=== PATIENT | male | born 1965 | race Caucasian/White ===

== ENCOUNTER 2018-11-14 05:14 | Observation (INO) | payer OTHER ==
[2018-11-14] MEDS ORDERED: ASPIRIN 81 MG CHEWABLE TABLET ONE (05:52)
[2018-11-14] MEDS ORDERED: NITROGLYCERIN 0.4 MG/TAB SL ONE (05:52)
[2018-11-14 06:04] LABS: Absolute Lymphocytes (CBC) 1.8 K/uL (0.7-4.9); Absolute Monocytes 0.7 K/uL (0.1-1.3); Absolute Neutrophil 9.9 K/uL (1.8-8.0); Basophils % 0.3 % (0-1.3); Eosinophils % 1.2 % (0-4.4); Hematocrit 48.2 % (39.6-49.0); Lymphocytes % 14.4 % (15.3-44.8); Monocytes % 5.8 % (3.3-12.3); RBC Red Blood Cell Count 5.19 M/uL (4.33-5.43)
[2018-11-14 06:10] LABS: ALT/SGPT 57 U/L (12-78); AST/SGOT 22 U/L (15-37); Albumin 4.3 g/dL (3.4-5.0); Alkaline Phosphatase 89 U/L (45-117); BUN Blood Urea Nitrogen 19 mg/dL (7-18); Bicarbonate 28 mmol/L (21-32); Bilirubin Direct 0.2 mg/dL (0-0.2); Bilirubin Total 1.2 mg/dL (0.2-1.0); Glucose Level 95 mg/dL (74-106); NT PRO-BNP 23 pg/mL (<125); Potassium 4.3 mmol/L (3.5-5.1); Protein, Total 7.3 g/dL (6.4-8.2); Sodium Level 141 mmol/L (136-145); Troponin (Emerg Dept Use Only) < 0.02 ng/mL (0.0-0.045)
--- NOTE | 2018-11-14 06:25 | EDPHYS ---
Physician Documentation [facility] Name: Abrahan Jacobs Age: 53 yrs Sex: Male : 1965 Arrival Date: 11/14/2018 Time: 05:15 Bed 5 Private MD: ED Physician Lalo Rivera HPI: 11/14 05:33 This 53 yrs old Male presents to ER via Unassigned with complaints of Chest rn Pain, Possible Cardiac Related. 05:33 The patient or guardian reports chest pain that is located primarily in the substernal rn area. Onset: at 03:00. The pain radiates to Associated signs and symptoms: Pertinent positives: None. Pertinent negatives: abdominal pain, cough, diaphoresis, dizziness, headache, lower extremity pain, lower extremity swelling, lightheadedness, nausea, near syncope, palpitations, recent travel, shortness of breath, syncope, vomiting. The chest pain is described as a heaviness. Duration: The patient or guardian reports a single episode, that is still ongoing. Severity of pain: At its worst the pain was moderate in the emergency department the pain has improved. The patient has experienced a previous episode, The patient has experienced similar episodes in the past. Reports had triple bypass 7 years ago, has not had repeat stress or anything other than bloodwork since then, has been pain free since then. Woke up around 0300 wih chest heaviness/pressure, radiates to riht shoulder and back, was 7/10, now 2/10 without taking anything. Denies fever/cough/sob/abd pain.. Historical: - Allergies: 05:43 No Known Allergies; lp1 - Home Meds: 05:43 simvastatin 80 mg Oral tab daily [Active]; aspirin 325 mg Oral tab 1 tab once daily lp1 [Active]; Vascepa 1 gram oral cap 2 caps 2 times per day [Active]; bisoprolol fumarate 5 mg oral tab 1 tab once daily [Active]; levothyroxine 150 mcg tab 1 tab once daily [Active]; - PMHx: 05:43 Angina; Hyperlipidemia; Hypothyroidism; Hypertension; lp1 - PSHx: 05:43 CABG; lp1 - Immunization history:: Adult Immunizations up to date. - Social history:: Smoking status: Patient/guardian denies using tobacco. - Family history:: pertinent for heart disease. - Ebola Screening: : No symptoms or risks identified at this time. - Hospitalizations: : No recent hospitalization is reported. ROS: 05:34 Constitutional: Negative for fever, chills, and weight loss, Eyes: Negative for injury, rn pain, redness, and discharge, Neck: Negative for injury, pain, and swelling, Cardiovascular: Negative for palpitations, and edema, Respiratory: Negative for shortness of breath, cough, wheezing, and pleuritic chest pain, Abdomen/GI: Negative for abdominal pain, nausea, vomiting, diarrhea, and constipation, MS/Extremity: Negative for injury and deformity, Skin: Negative for injury, rash, and discoloration, Neuro: Negative for headache, weakness, numbness, tingling, and seizure. Exam: 05:34 Constitutional: This is a well developed, well nourished patient who is awake, alert, rn and in no acute distress. Head/Face: Normocephalic, atraumatic. Eyes: Pupils equal round and reactive to light, extra-ocular motions intact. Lids and lashes normal. Conjunctiva and sclera are non-icteric and not injected. Cornea within normal limits. Periorbital areas with no swelling, redness, or edema. ENT: MMM Cardiovascular: Regular rate and rhythm. No pulse deficits. Respiratory: Lungs have equal breath sounds bilaterally, clear to auscultation. Speaking full sentences Abdomen/GI: soft, non-tender Skin: Warm, dry MS/ Extremity: Pulses equal, no cyanosis. Neurovascular intact. Full, normal range of motion. Equal circumference. Neuro: Awake and alert, GCS 15. Motor strength 5/5 in all extremities. Sensory grossly intact. Cerebellar exam normal. Vital Signs: 05:41 BP 144 / 92; Pulse 57; Resp 16; Temp 98.4(O); Pulse Ox 98% on R/A; Weight 106.59 kg; lp1 Height 5 ft. 11 in. (180.34 cm); Pain 2/10; 06:32 BP 116 / 62 LA; tl2 06:32 BP 117 / 74 RA; tl2 06:32 BP 117 / 74; Pulse 58; Resp 17; Pulse Ox 97% on R/A; tl2 08:00 BP 114 / 68; Pulse 56; Resp 15; Pulse Ox 100% on R/A; Pain 2/10; hb 09:30 BP 108 / 72; Pulse 57; Resp 16; Pulse Ox 100% ; Pain 0/10; hb 10:30 BP 118 / 72; Pulse 58; Resp 15; Pulse Ox 100% on R/A; Pain 0/10; hb 12:05 BP 101 / 75; Pulse 57; Resp 14; Pulse Ox 100% on R/A; Pain 0/10; hb 05:41 Body Mass Index 32.78 (106.59 kg, 180.34 cm) lp1 MDM: 05:16 Patient medically screened. rn 05:47 Transition of care: After a detail discussion of the patient's case, care is rn transferred to Lalo Rivera MD. 06:17 Data reviewed: vital signs, nurses notes, lab test result(s), EKG, radiologic studies, armando plain films. 11/14 05:33 Order name: Basic Metabolic Panel; Complete Time: 06:16 rn 11/14 05:33 Order name: CBC with Diff; Complete Time: 06:16 rn 11/14 05:33 Order name: LFT's; Complete Time: 06:16 rn 11/14 05:33 Order name: NT PRO-BNP; Complete Time: 06:16 rn 11/14 05:33 Order name: Troponin (emerg Dept Use Only); Complete Time: 06:16 rn 11/14 09:29 Order name: Troponin (emerg Dept Use Only) hb 11/14 05:33 Order name: XRAY Chest (1 view) rn 11/14 06:26 Order name: Echo w/ Doppler [facility] 11/14 10:19 Order name: Troponin (Emerg Dept Use Only) EDMS 11/14 12:13 Order name: NM EDMS 11/14 05:33 Order name: EKG; Complete Time: 05:34 rn 11/14 05:33 Order name: Cardiac monitoring; Complete Time: 05:36 rn 11/14 05:33 Order name: EKG - Nurse/Tech; Complete Time: 05:36 rn 11/14 05:33 Order name: IV Saline Lock; Complete Time: 05:40 rn 11/14 05:33 Order name: Labs collected and sent; Complete Time: 05:40 rn 11/14 05:33 Order name: O2 Per Protocol; Complete Time: 05:36 rn 11/14 05:33 Order name: O2 Sat Monitoring; Complete Time: 05:36 rn 11/14 06:17 Order name: Bilateral blood pressure; Complete Time: 06:29 armando 11/14 06:31 Order name: NPO; Complete Time: 06:34 [facility] Administered Medications: 05:38 Drug: Aspirin Chewable Tablet 324 mg Route: PO; tl2 06:33 Follow up: Response: No adverse reaction tl2 05:38 Drug: Nitroglycerin 0.4 mg Route: Sublingual; tl2 06:33 Follow up: Response: No adverse reaction; Pain is decreased tl2 06:47 Drug: Lovenox 100 mg Route: Sub-Q; Site: right lower abdomen; tl2 07:00 Follow up: Response: No adverse reaction tl2 06:47 Drug: Pepcid 20 mg Route: IVP; Site: right antecubital; tl2 07:00 Follow up: Response: No adverse reaction tl2 06:47 Drug: Tylenol 650 mg Route: PO; tl2 07:00 Follow up: Response: No adverse reaction tl2 06:47 Drug: Nitro-Bid Ointment 2 % 1 inches Route: Transdermal; Site: anterior chest wall; tl2 Disposition: 11/14/18 06:24 Hospitalization ordered by Linden Jiménez for Observation. Preliminary diagnosis are Chest pain, unspecified, Essential (primary) hypertension. - Bed requested for Telemetry/MedSurg (Inpatient). - Status is Observation. ms - Condition is Stable. - Problem is new. - Symptoms have improved. UTI on Admission? No Signatures: Dispatcher [employer] EDLalo Fuentes MD MD cha Solis, Maria ms Nieto, Roman, MD MD rn Pena, Laura, RN RN lp1 Gala Hurst RN RN tl2 Corrections: (The following items were deleted from the chart) 10:47 06:24 Hospitalization Ordered by Linden Jiménez DO for Observation. Preliminary ms diagnosis is Chest pain, unspecified; Essential (primary) hypertension. Bed requested for Telemetry/MedSurg (Inpatient). Status is Observation. Condition is Stable. Problem is new. Symptoms have improved. UTI on Admission? No. [facility] 13:06 10:47 11/14/2018 06:24 Hospitalization Ordered by Linden Jiménez DO for Observation. ms Preliminary diagnosis is Chest pain, unspecified; Essential (primary) hypertension. Bed requested for Telemetry/MedSurg (Inpatient). Status is Observation. Condition is Stable. Problem is new. Symptoms have improved. UTI on Admission? No. ms
--- NOTE | 2018-11-14 06:25 | ER ---
Nurse's Notes [facility] Name: Abrahan Jacobs Age: 53 yrs Sex: Male : 1965 Arrival Date: 11/14/2018 Time: 05:15 Bed 5 Private MD: Diagnosis: Chest pain, unspecified;Essential (primary) hypertension Presentation: 11/14 05:40 Presenting complaint: Patient states: Woken up put of sleep with pain between shoulder lp1 blades about 0300, states pain then began to chest shortly after; States some improvement on arrival to ED; Denies any shortness of breath, dizziness. Transition of care: patient was not received from another setting of care. Onset of symptoms was November 14, 2018 at 03:00. Risk Assessment: Do you want to hurt yourself or someone else? Patient reports no desire to harm self or others. Initial Sepsis Screen: Does the patient meet any 2 criteria? No. Patient's initial sepsis screen is negative. Does the patient have a suspected source of infection? No. Patient's initial sepsis screen is negative. Care prior to arrival: None. 05:40 Method Of Arrival: Wheelchair lp1 05:40 Acuity: ZEB 3 lp1 Historical: - Allergies: 05:43 No Known Allergies; lp1 - Home Meds: 05:43 simvastatin 80 mg Oral tab daily [Active]; aspirin 325 mg Oral tab 1 tab once daily lp1 [Active]; Vascepa 1 gram oral cap 2 caps 2 times per day [Active]; bisoprolol fumarate 5 mg oral tab 1 tab once daily [Active]; levothyroxine 150 mcg tab 1 tab once daily [Active]; - PMHx: 05:43 Angina; Hyperlipidemia; Hypothyroidism; Hypertension; lp1 - PSHx: 05:43 CABG; lp1 - Immunization history:: Adult Immunizations up to date. - Social history:: Smoking status: Patient/guardian denies using tobacco. - Family history:: pertinent for heart disease. - Ebola Screening: : No symptoms or risks identified at this time. - Hospitalizations: : No recent hospitalization is reported. Screenin:45 Abuse screen: Denies threats or abuse. Denies injuries from another. Nutritional lp1 screening: No deficits noted. Tuberculosis screening: No symptoms or risk factors identified. Fall Risk None identified. Assessment: 05:44 General: Appears in no apparent distress. Behavior is calm, cooperative, appropriate lp1 for age. Pain: Complains of pain in chest Pain does not radiate. Pain began suddenly. Neuro: Level of Consciousness is awake, alert, obeys commands, Oriented to person, place, time, situation. Cardiovascular: Reports chest pain, Patient's skin is warm and dry. Rhythm is sinus bradycardia. Respiratory: Respiratory effort is even, unlabored, Breath sounds are clear bilaterally. GI: No signs and/or symptoms were reported involving the gastrointestinal system. : No signs and/or symptoms were reported regarding the genitourinary system. EENT: No signs and/or symptoms were reported regarding the EENT system. Derm: Skin is pink, warm \T\ dry. Musculoskeletal: Circulation, motion, and sensation intact. 07:05 Reassessment: Patient appears in no apparent distress at this time. Patient and/or hb family updated on plan of care and expected duration. Pain level reassessed. Patient is alert, oriented x 3, equal unlabored respirations, skin warm/dry/pink. Reassessment: Patient appears in no apparent distress at this time. Patient and/or family updated on plan of care and expected duration. Pain level reassessed. Patient is alert, oriented x 3, equal unlabored respirations, skin warm/dry/pink. 08:00 Reassessment: Patient appears in no apparent distress at this time. No changes from previously documented assessment. Patient and/or family updated on plan of care and expected duration. Pain level reassessed. Patient is alert, oriented x 3, equal unlabored respirations, skin warm/dry/pink. 08:10 Reassessment: Pt to ECHO via wheelchair. Family remains at bedside. 08:47 Reassessment: Awaiting for bed availability on telemetry unit. Dr. Swartz at bedside ss at this time for consultation. 09:30 Reassessment: Patient appears in no apparent distress at this time. Patient and/or hb family updated on plan of care and expected duration. Pain level reassessed. Patient is alert, oriented x 3, equal unlabored respirations, skin warm/dry/pink. 10:30 Reassessment: Patient appears in no apparent distress at this time. No changes from previously documented assessment. Patient and/or family updated on plan of care and expected duration. Pain level reassessed. Patient is alert, oriented x 3, equal unlabored respirations, skin warm/dry/pink. 10:48 Reassessment: Pt to radiology for stress test. hb 11:54 Reassessment: Pt returned from stress test via wheelchair. hb 11:56 Reassessment: Patient appears in no apparent distress at this time. Patient and/or hb family updated on plan of care and expected duration. Pain level reassessed. Patient is alert, oriented x 3, equal unlabored respirations, skin warm/dry/pink. 12:00 Reassessment: Attempted to call report to floor, receiving nurse unavailable. hb 12:27 Reassessment: Attempted to call report to floor, receiving nurse unavailable. hb Vital Signs: 05:41 BP 144 / 92; Pulse 57; Resp 16; Temp 98.4(O); Pulse Ox 98% on R/A; Weight 106.59 kg; lp1 Height 5 ft. 11 in. (180.34 cm); Pain 2/10; 06:32 BP 116 / 62 LA; tl2 06:32 BP 117 / 74 RA; tl2 06:32 BP 117 / 74; Pulse 58; Resp 17; Pulse Ox 97% on R/A; tl2 08:00 BP 114 / 68; Pulse 56; Resp 15; Pulse Ox 100% on R/A; Pain 2/10; hb 09:30 BP 108 / 72; Pulse 57; Resp 16; Pulse Ox 100% ; Pain 0/10; hb 10:30 BP 118 / 72; Pulse 58; Resp 15; Pulse Ox 100% on R/A; Pain 0/10; hb 12:05 BP 101 / 75; Pulse 57; Resp 14; Pulse Ox 100% on R/A; Pain 0/10; hb 05:41 Body Mass Index 32.78 (106.59 kg, 180.34 cm) lp1 ED Course: 05:15 Patient arrived in ED. am2 05:16 Warren Rehman MD is Attending Physician. rn 05:35 Inserted saline lock: 20 gauge in right antecubital area, using aseptic technique. lp1 Blood collected. 05:35 Patient maintains SpO2 saturation greater than 95% on room air. lp1 05:39 Ita Anderson RN is Primary Nurse. lp1 05:41 Triage completed. lp1 05:41 Arm band placed on left wrist. lp1 05:44 Patient has correct armband on for positive identification. property assessment monitor on. Pulse lp1 ox on. NIBP on. 06:08 XRAY Chest (1 view) In Process Unspecified. EDMS 06:15 Attending Physician role handed off by Warren Rehman MD [facility] 06:15 Lalo Rivera MD is Attending Physician. armando 06:24 Linden Jiménez DO is Hospitalizing Provider. armando 06:59 Report given to MICHAEL Hankins. tl2 09:59 Troponin (emerg Dept Use Only) Sent. hb 11:55 Note: STRESS TEST COMPLETE. PT TOLERATED TEST WELL. NO CHANGES. RETURNED TO ED. NURSE lala NOTIFIED. CL, RT(N), DUMBWAITER OPERATOR. Administered Medications: 05:38 Drug: Aspirin Chewable Tablet 324 mg Route: PO; tl2 06:33 Follow up: Response: No adverse reaction tl2 05:38 Drug: Nitroglycerin 0.4 mg Route: Sublingual; tl2 06:33 Follow up: Response: No adverse reaction; Pain is decreased tl2 06:47 Drug: Lovenox 100 mg Route: Sub-Q; Site: right lower abdomen; tl2 07:00 Follow up: Response: No adverse reaction tl2 06:47 Drug: Pepcid 20 mg Route: IVP; Site: right antecubital; tl2 07:00 Follow up: Response: No adverse reaction tl2 06:47 Drug: Tylenol 650 mg Route: PO; tl2 07:00 Follow up: Response: No adverse reaction tl2 06:47 Drug: Nitro-Bid Ointment 2 % 1 inches Route: Transdermal; Site: anterior chest wall; tl2 Outcome: 06:24 Decision to Hospitalize by Provider. armando 13:06 Patient left the ED. ms Signatures: Dispatcher [employer] EDNM Lalo Rivera MD MD cha Solis, Maria ms Warren Rehman MD MD rn Smirch, Shelby, RN RN Ita Anderson RN RN lp1 Fara Maria Heather, RN RN Gala Hurst RN RN tl2 Nely Solis
--- NOTE | 2018-11-14 06:53 | EKG ---
Test Date: 2018-11-14 Test Time: 05:24:41 [employer] House Supervisor: GAVIN MEASUREMENT RESULTS: Intervals: Rate: 56 OH: 204 QRSD: 88 QT: 436 QTc: 420 Pace: P: 51 OH: 204 QRS: 27 T: 28 INTERPRETIVE STATEMENTS: Sinus bradycardia Otherwise normal ECG No previous ECG available for comparison Electronically Signed On 11-14-18 06:52:30 CDT by Abimael Carreno
[2018-11-14] MEDS ORDERED: ENOXAPARIN 100 MG/ML SYR SQ ONE (06:57)
[2018-11-14] MEDS ORDERED: ACETAMINOPHEN 325 MG TABLET ONE (06:57)
[2018-11-14] MEDS ORDERED: NITROGLYCERIN 1 GM PKT TD ONE (06:57)
[2018-11-14] MEDS ORDERED: FAMOTIDINE 20 MG/2 ML VIAL IV ONE (06:58)
--- NOTE | 2018-11-14 07:43 | RAD REPORT ---
EXAM DESCRIPTION: RAD - Chest Single View - 11/14/2018 6:06 am CLINICAL HISTORY: Chest pain COMPARISON: None. TECHNIQUE: AP portable chest image was obtained 0552 hours . FINDINGS: Lungs are clear. No failure volume overload. Sternotomy wires are in place. Heart and vasc ulature are normal. No measurable pleural effusion and no pneumothorax. No acute bony abnormality see n. No acute aortic findings suspected. IMPRESSION: No acute cardiopulmonary process.
--- NOTE | 2018-11-14 08:29 | P.HP ---
Certification for Inpatient With expected LOS: <2 Midnights Patient will require the following post-hospital care: None Practitioner: I am a practitioner with admitting privileges, knowledge of patient current condition, hospital course, and medical plan of care. Services: Services provided to patient in accordance with Admission requirements found in Title 42 Section 412.3 of the Code of Federal Regulations Patient History Date of Service: 11/14/18 Primary Care Provider: none; Cardiology-Dr. Carreno Reason for admission: Chest pain History of Present Illness: 53-year-old male with history of hypertension, hyperlipidemia, CABG x3 vessels 7 years ago and alcohol abuse, presented to the emergency room with chest pain. Patient reported chest pain that will come up early this morning. The pain was to the substernal region. He reported some radiation of pain to the back. He rated the pain about a 7/10. The pain was constant. He denied any shortness of breath, nausea or vomiting. The pain persisted therefore went to the ER for further evaluation. Patient was evaluated in the emergency room. EKG showed sinus bradycardia with a rate of 56 without any significant EKG changes. Troponin unremarkable. White count 12.6, hemoglobin 16. Sodium 141, potassium 4.3, BUN of 19, creatinine 1.39 with a GFR 53. Glucose of 95. Blood pressure stable at this time. Patient was admitted for further evaluation and observation. When I saw the patient ER, he appeared comfortable. at bedside. He admits drinking several glasses of whiskey and beer daily. Patient is compliant with his medication including Zocor, aspirin, Vascepa, Bisoprolol, and levothyroxine. He is seen by cardiology. CABG was 7 years ago. It was a 3 vessel CABG. He has not had any significant cardiac workup since that time. Patient has significant family history of heart disease. Patient remains active with exercise. Home medications list reviewed: Yes - Past Medical/Surgical History Diabetic: No -: Hypertension -: Hyperlipidemia -: CAD, CABG-3 vessel -: Hypothyroidism -: Alcohol abuse -: CABG x3 vessel, 7 years ago Psychosocial/ Personal History: Patient is . He has 3 children. He works as an consulting systems engineer at [employer] - Family History Father -: Heart disease Brother -: Heart disease - Social History Smoking Status: Never smoker Alcohol use: Yes CD- Drugs: No Caffeine use: Yes Place of Residence: Home Review of Systems General: As per HPI Eyes: Unremarkable ENT: Unremarkable Respiratory: Unremarkable Cardiovascular: Chest Pain, As per HPI Gastrointestinal: Unremarkable Genitourinary: Unremarkable Musculoskeletal: Unremarkable Integumentary: Unremarkable Neurological: Unremarkable Lymphatics: Unremarkable Physical Examination - Physical Exam General: Alert, In no apparent distress, Oriented x3, Cooperative HEENT: Atraumatic, Normocephalic, PERRLA, Mucous membr. moist/pink Neck: Supple, No Thyromegaly Respiratory: Clear to auscultation bilaterally, Normal air movement Cardiovascular: Normal pulses, Regular rate/rhythm Gastrointestinal: Normal bowel sounds, Soft and benign, Non-distended, No tenderness, No masses, No rebound, No guarding Musculoskeletal: No erythema, No tenderness, No warmth Integumentary: No tenderness/swelling, No erythema, No warmth, No cyanosis Neurological: Normal speech, Normal strength at 5/5 x4 extr, Normal tone, Normal affect - Studies Laboratory Data (last 24 hrs) 11/14/18 05:35: WBC 12.6 H, Hgb 16.4, Hct 48.2, Plt Count 191 11/14/18 05:35: Sodium 141, Potassium 4.3, BUN 19 H, Creatinine 1.39 H, Glucose 95, Total Bilirubin 1.2 H, AST 22, ALT 57, Alkaline Phosphatase 89 Assessment and Plan - Plan Impression: Chest pain with significant risk factors, suspect angina Hypertension Hyperlipidemia CAD with prior CABG Hypothyroidism Alcohol abuse Plan: Chest pain with significant risk factors, suspect angina: Patient will be admitted for further evaluation and observation. Heart score calculated-4. Patient with multiple risk factors including hypertension, hyperlipidemia, CAD with prior CABG, alcohol abuse and family history of heart disease order stress test to further evaluate. Will also order echocardiogram. Will continue monitor on telemetry and cardiac enzymes. Will obtain tsh, free T4 and fasting lipid panel. Cardiology consulted to further evaluate. Await recommendation. Will start aspirin, statin medication, Lovenox for DVT prophylaxis, beta- shannan therapy. Will continue to monitor closely. Likely discharge if workup unremarkable. Hypertension: Restart his beta-shannan therapy. Hyperlipidemia: Continue with statin and fish oil medication. Will check fasting lipid panel. CAD with prior CABG: Continue as above. CABG done 3 years ago. He has not had any major cardiac workup since that time. He is followed by Cardiology closely. Hypothyroidism: Will check tsh and free T4. Continue with home medication. Alcohol abuse: Alcohol cessation addressed in detail. Patient understands risks of continued use. Discharge Plan: Home Plan to discharge in: 24 Hours - Advance Directives Does patient have a Living Will: No Does patient have a Durable POA for Healthcare: No - Code Status/Comfort Care Code Status Assessed: Yes (Patient is full code.) Time Spent Managing Pts Care (In Minutes): 55
--- NOTE | 2018-11-14 09:54 | ECHO ---
HEIGHT: ft in WEIGHT: lb oz DATE OF STUDY: 11/14/[address]: FELIZ 2-DIMENSIONAL: YES M.MODE: YES DOPPLER: YES COLOR FLOW: YES TDS: YES PORTABLE: YES DEFINITY: NO BUBBLE STUDY: NO DIAGNOSIS: CHEST PAIN CARDIAC HISTORY: CATHERIZATION: YES SURGERY: YES PROSTHETIC VALVE: NO PACEMAKER: NO MEASUREMENTS (cm) DIASTOLIC (NORMALS) SYSTOLIC (NORMALS) IVSd 1.1 (0.6-1.2) LA Diam 3.7 (1.9-4.0) LVEF 71% LVIDd 4.8 (3.5-5.7) LVIDs 2.9 (2.0-3.5) %FS 40% LVPWd 1.2 (0.6-1.2) Ao Diam 3.1 (2.0-3.7) 2 DIMENSIONAL ASSESSMENT: RIGHT ATRIUM: NORMAL LEFT ATRIUM: NORMAL RIGHT VENTRICLE: NORMAL LEFT VENTRICLE: NORMAL TRICUSPID VALVE: NORMAL MITRAL VALVE: NORMAL PULMONIC VALVE: NORMAL AORTIC VALVE: NORMAL PERICARDIAL EFFUSION: NONE AORTIC ROOT: NORMAL LEFT VENTRICULAR WALL MOTION: NORMAL. DOPPLER/COLOR FLOW: NORMAL. COMMENTS: NORMAL 2D ECHOCARDIOGRAM WITH DOPPLER. NO WALL MOTION ABNORMALITIES. NO EFFUSION. TECHNOLOGIST: NJ CHISHOLM
[2018-11-14] MEDS ORDERED: REGADENOSON 0.4 MG/5 ML SYR IV ONE (11:02)
--- NOTE | 2018-11-14 12:11 | RAD REPORT ---
EXAM DESCRIPTION: NM - Rest Stress Cardiac Imaging - 11/14/2018 12:01 pm CLINICAL HISTORY: CP Chest pain. COMPARISON: No comparisons TECHNIQUE: The patient was administered approximately 10mCi of Tc 99m Sestamibi prior to resting SPE CT imaging of the heart. The patient was then administered approximately 30 mCi of Tc 99m Sestamibi f ollowing exercise or pharmacologic stress. Multiplanar SPECT images were reviewed. FINDINGS: No stress induced ischemic defect is seen to suggest stress induced ischemia. No fixed def ect is seen to suggest hibernating myocardium or scarred myocardium. The end diastolic volume is 122 ml, the end systolic volume is 46 ml, and the ejection fraction is 62 %. IMPRESSION: No stress induced ischemia.
[2018-11-14] MEDS ORDERED: ACETAMINOPHEN 500 MG TAB PO PRN (13:25)
[2018-11-14] MEDS ORDERED: MORPHINE 2 MG/ML SYR IV PRN (13:25)
[2018-11-14] MEDS ORDERED: NITROGLYCERIN 0.4 MG/TAB SL PRN (13:25)
[2018-11-14] MEDS ORDERED: ONDANSETRON 4 MG/2 ML VIAL IV PRN (13:25)
[2018-11-14] MEDS ORDERED: BISOPROLOL 5 MG TABLET PO SCH (14:00)
[2018-11-14] MEDS ORDERED: ENOXAPARIN 40 MG/0.4 ML SQ SCH (14:00)
[2018-11-14] MEDS ORDERED: ASPIRIN EC 81 MG TAB PO SCH (14:00)
[2018-11-14] MEDS ORDERED: ICOSAPENT ETHYL 1 GM CAP PO SCH (15:00)
--- NOTE | 2018-11-14 16:00 | P.DS ---
Admission Date: 11/14/18 Discharge Date: 11/14/18 Primary Care Provider: none; Cardiology-Dr. Carreno Disposition: ROUTINE DISCHARGE Discharge Condition: GOOD Reason for Admission: Chest pain Consultations: Cardiology-Dr. Perez Procedures: ECHO: Ejection fraction 71% LEFT VENTRICULAR WALL MOTION: NORMAL. DOPPLER/COLOR FLOW: NORMAL. COMMENTS: NORMAL 2D ECHOCARDIOGRAM WITH DOPPLER. NO WALL MOTION ABNORMALITIES. NO EFFUSION. Cardiac stress test: COMPARISON: No comparisons TECHNIQUE: The patient was administered approximately 10mCi of Tc 99m Sestamibi prior to resting SPECT imaging of the heart. The patient was then administered approximately 30 mCi of Tc 99m Sestamibi following exercise or pharmacologic stress. Multiplanar SPECT images were reviewed. FINDINGS: No stress induced ischemic defect is seen to suggest stress induced ischemia. No fixed defect is seen to suggest hibernating myocardium or scarred myocardium. The end diastolic volume is 122 ml, the end systolic volume is 46 ml, and the ejection fraction is 62 %. IMPRESSION: No stress induced ischemia. Medical Problem List: Chest pain likely GERD related Hypertension Hyperlipidemia Hypothyroidism Alcohol abuse CAD with prior CABG x3 vessel Brief History of Present Illness: 53-year-old male with history of hypertension, hyperlipidemia, CABG x3 vessels 7 years ago and alcohol abuse, presented to the emergency room with chest pain. Patient reported chest pain that will come up early this morning. The pain was to the substernal region. He reported some radiation of pain to the back. He rated the pain about a 7/10. The pain was constant. He denied any shortness of breath, nausea or vomiting. The pain persisted therefore went to the ER for further evaluation. Patient was evaluated in the emergency room. EKG showed sinus bradycardia with a rate of 56 without any significant EKG changes. Troponin unremarkable. White count 12.6, hemoglobin 16. Sodium 141, potassium 4.3, BUN of 19, creatinine 1.39 with a GFR 53. Glucose of 95. Blood pressure stable at this time. Patient was admitted for further evaluation and observation. When I saw the patient ER, he appeared comfortable. at bedside. He admits drinking several glasses of whiskey and beer daily. Patient is compliant with his medication including Zocor, aspirin, Vascepa, Bisoprolol, and levothyroxine. He is seen by cardiology. CABG was 7 years ago. It was a 3 vessel CABG. He has not had any significant cardiac workup since that time. Patient has significant family history of heart disease. Patient remains active with exercise. Hospital Course: Patient presented with chest pain. Patient had multiple risk factors including hypertension, hyperlipidemia, alcohol abuse and CAD with prior CABG. Patient seen and evaluated by Cardiology. Cardiac enzymes unremarkable. Chest pain resolved. Echocardiogram and cardiac stress test were negative for ischemia. No further cardiac intervention was required. Chest pain may be related to underlying GERD. At discharge patient will continue with Pepcid 20 mg 1 pill twice daily. Patient may benefit with GI evaluation with EGD in the near future to further address. At discharge patient will also be given nitroglycerin to be use as needed for chest pain. Recommend to follow up with cardiology in 2-4 weeks. Patient with hypertension. This has remained stable. Patient will continue with his current medication. Patient with hyperlipidemia. Patient will continue with his current medications. Fasting lipid panel can be followed up as an outpatient. Patient with hypothyroidism. Patient will continue with his current medication. Lab-free T4 and tsh can be followed up as an outpatient. Patient with alcohol abuse. Alcohol cessation education provided. Recommend to decrease alcohol intake. Vital Signs/Physical Exam: Temp Pulse Resp BP Pulse Ox 97.2 F 49 L 16 116/61 96 11/14/18 13:00 11/14/18 13:00 11/14/18 13:00 11/14/18 13:00 11/14/18 13:00 General: Alert, In no apparent distress, Oriented x3, Cooperative HEENT: Atraumatic Neck: Supple Respiratory: Clear to auscultation bilaterally, Normal air movement Cardiovascular: Normal pulses, Regular rate/rhythm Gastrointestinal: Normal bowel sounds, Soft and benign, Non-distended, No ascites, No tenderness, No masses, No rebound, No guarding Musculoskeletal: No erythema, No tenderness, No warmth Integumentary: No tenderness/swelling, No erythema, No warmth, No cyanosis Neurological: Normal speech, Normal strength at 5/5 x4 extr, Normal tone Laboratory Data at Discharge: WBC 12.6 K/uL (4.3-10.9) H 11/14/18 05:35 Hgb 16.4 g/dL (13.6-17.9) 11/14/18 05:35 Hct 48.2 % (39.6-49.0) 11/14/18 05:35 Plt Count 191 K/uL (152-406) 11/14/18 05:35 Sodium 141 mmol/L (136-145) 11/14/18 05:35 Potassium 4.3 mmol/L (3.5-5.1) 11/14/18 05:35 BUN 19 mg/dL (7-18) H 11/14/18 05:35 Creatinine 1.39 mg/dL (0.55-1.3) H 11/14/18 05:35 Glucose 95 mg/dL (74-106) 11/14/18 05:35 Total Bilirubin 1.2 mg/dL (0.2-1.0) H 11/14/18 05:35 AST 22 U/L (15-37) 11/14/18 05:35 ALT 57 U/L (12-78) 11/14/18 05:35 Alkaline Phosphatase 89 U/L (45-117) 11/14/18 05:35 Troponin I Cancelled 11/14/18 13:25 Triglycerides Cancelled 11/14/18 13:25 Cholesterol Cancelled 11/14/18 13:25 HDL Cholesterol Cancelled 11/14/18 13:25 Cholesterol/HDL Ratio Cancelled 11/14/18 13:25 Home Medications: Aspirin 1 tab PO DAILY 11/14/18 Bisoprolol Fumarate [Zebeta*] 1 tab PO BEDTIME 11/14/18 Famotidine [Pepcid] 20 mg PO BID #60 tab 11/14/18 Icosapent Ethyl [Vascepa] 2 tab PO BID 11/14/18 Levothyroxine [Synthroid*] 150 mg PO [id number] 11/14/18 Nitroglycerin 0.4 mg SL SEECOM #30 tab.subl 11/14/18 Simvastatin 80 mg PO BEDTIME 11/14/18 New Medications: Famotidine [Pepcid] 20 mg PO BID #60 tab Nitroglycerin 0.4 mg SL SEECOM #30 tab.subl Patient Discharge Instructions: 1. Patient will follow up with his PCP in 1 week to follow up hospitalization. 2. Patient presented with chest pain. Patient seen and evaluated by Cardiology. Cardiac enzymes unremarkable. No significant EKG changes noted. Echocardiogram and cardiac stress test negative. Chest pain may be related to underlying GERD. At discharge patient will continue with Pepcid 20 mg 1 pill twice daily. Patient may benefit with GI evaluation with EGD in the near future to further address. At discharge patient will also be given nitroglycerin to be use as needed for chest pain. Recommend to follow up with cardiology in 2-4 weeks. 3. Patient with hypertension. This has remained stable. Patient will continue with his current medication. 4. Patient with hyperlipidemia. Patient will continue with his current medications. Fasting lipid panel can be followed up as an outpatient. 5. Patient with hypothyroidism. Patient will continue with his current medication. Lab-free T4 and tsh can be followed up as an outpatient. 6. Patient with alcohol abuse. Alcohol cessation education provided. Recommend to decrease alcohol intake. Diet: AHA Activity: Ad ofelia Time spent managing pt's care (in minutes): 55
--- NOTE | 2018-11-14 16:10 | CON ---
Date of Consultation: 11/14/[address] Jiménez's service on 11/14/2018. I saw the patient on 11/14/2018. Reason For Consultation: Chest pain. History Of Present Illness: Mr. Jacobs is a 53-year-old male, had coronary artery bypass surgery by Dr. Eliceo Barth at [facility] 7 years ago. He has a history of hypertension, dyslipidemi a, hypothyroidism, family history of heart disease. Came in with substernal midepigastric chest pain radiating to the back without any nausea, vomiting, diaphoresis, PND, orthopnea, pedal edema, palpit ations, or syncope. His symptoms lasted about 3 hours that woke him up at night. No exertional symp toms. So far EKG is normal. Troponin is negative. Chest x-ray is negative. He has a slightly elev ated white count of 12.6. Creatinine is 1.39. Past Medical History: As stated above. Allergies: NONE. Review of Systems: Negative. Social History: Negative. Family History: Positive for heart disease. Medications: Include Bystolic, Zocor, Vascepa, and Synthroid. Physical Examination: Vital Signs: Stable, afebrile. HEENT: Negative. Neck: Supple without bruit, lymphadenopathy, JVD, or thyromegaly. Chest: Clear to auscultation and percussion. Cardiac: Reveals regular rhythm and rate. No murmurs, gallops, or rubs. Abdomen: Benign. Extremities: Revealed no clubbing, cyanosis, or edema. Diagnostic Data: Stated above. Impression And Plan: 1.Atypical chest pain, normal EKG, normal troponin, normal chest x-ray and normal echocardiogram so far. Lexiscan is pending. Most likely gastroesophageal in nature. 2.Dyslipidemia. 3.History of coronary artery bypass graft, stable. 4.Hypertension, stable. 5.Hypothyroidism, stable. We will see what the stress test shows before making final decisions. HUGH/PANDA Voice ID: [id number] Report ID: [id number]
[2018-11-14] MEDS ORDERED: ATORVASTATIN 40 MG TAB PO SCH (21:00)
[2018-11-15] MEDS ORDERED: LEVOTHYROXINE SOD 0.125 MG TAB PO SCH (06:30)
--- NOTE | 2018-11-15 08:17 | TREADPHA ---
DX: CHEST PAIN Date of Study: 11/14/2018 Ht: 5 11 Wt: 236 lb 0 oz Consulting Physician: JOI MEDICATIONS: BICIPROLOL, ASPIRIN, LYOTHROXIN HISTORY: 53 YEAR OLD MALE WITH COMPLAINTS OF CHEST PAIN. HISTORY OF CORONARY ARTERY DISEASE, HYPERLIPIDEMIA, NON SMOKER, DRINKS 3 GLASSES OF WHISKEY DAILY. PHYSICIAL EXAMINATION: RESTING B.P.: 115/84 RESTING H.R.: 50 RESTING EKG: SINUS ISIS, 1 DEGREE AV BLOCK PROTOCOL: LEXISCAN EXERCISE TIME: 3:30 B.P. AT PEAK STRESS: 128/73 IMPRESSION: LEXISCAN INJECTED, FOLLOWED BY CARDIOLITE PER PROTOCOL. SEE NUCLEAR MEDICINE REPORT. NO SUPRAVENTRICULAR TACHYCARDIA, VENTRICULAR TACHYCARDIA, PREMATURE ATRIAL COMPLEXES OR PREMATURE VENTRICULAR COMPLEXES. PATIENT REPORTED NO CHEST PAIN. NON DIAGNOSTIC EKG WITH LEXISCAN STRESS.
== END 2018-11-14 15:10 | disposition home or self-care (01) ==
LOC: ER 05:14 → ERHOLD 06:54 → 2ND 12:38
PROVIDERS: ADMIT Family Medicine; ATTEND Family Medicine
DX: R07.89 Other chest pain (principal); I10 Essential (primary) hypertension; I25.10 Atherosclerotic heart disease of native coronary artery without angina pectoris; E78.5 Hyperlipidemia, unspecified; E03.9 Hypothyroidism, unspecified; F10.10 Alcohol abuse, uncomplicated; Z79.82 Long term (current) use of aspirin; Z79.899 Other long term (current) drug therapy; Z95.1 Presence of aortocoronary bypass graft; Z82.49 Family history of ischemic heart disease and other diseases of the circulatory system
CPT/HCPCS: 36415; 71045; 78452; 80048; 80076; 83880; 84484; 85025; 93005; 93017; 93306; 96372; 96374; 99285; A9500; G0378; J1650; J2785

== ENCOUNTER 2020-11-14 22:02 | Emergency (ER) | payer OTHER ==
[2020-11-14] MEDS ORDERED: ONDANSETRON 4 MG/2 ML VIAL ONE (22:23)
[2020-11-15 00:14] LABS: Absolute Lymphocytes (CBC) 1.7 K/uL (0.7-4.9); Basophils % 0.5 % (0-1.3); Hematocrit 50.8 % (39.6-49.0); Lymphocytes % 11.5 % (15.3-44.8); MPV 9.2 fL (7.6-11.3); RBC Red Blood Cell Count 5.48 M/uL (4.33-5.43)
[2020-11-15] MEDS ORDERED: ONDANSETRON 4 MG/2 ML VIAL ONE (00:29)
[2020-11-15] MEDS ORDERED: NA CHLORIDE 0.9% 1,000 ML ONE (00:29)
[2020-11-15] MEDS ORDERED: MORPHINE 4 MG/ML SYR ONE ×2 (00:29→04:05)
[2020-11-15 00:30] LABS: Albumin 4.6 g/dL (3.4-5.0); Bilirubin Direct 0.2 mg/dL (0-0.2); Bilirubin Total 1.4 mg/dL (0.2-1.0); Potassium 4.3 mmol/L (3.5-5.1); Protein, Total 8.2 g/dL (6.4-8.2)
--- NOTE | 2020-11-15 03:07 | EDPHYS ---
Physician Documentation [facility] Name: Abrahan Jacobs Age: 55 yrs Sex: Male : 1965 Arrival Date: 11/14/2020 Time: 22:04 Bed 4 Private MD: ED Physician Veto Ludwig HPI: 11/15 03:03 This 55 yrs old Male presents to ER via Ambulatory with complaints of ma2 Abdominal Distention, Abdominal Pain. 03:03 The patient presents with abdominal pain. Onset: The symptoms/episode began/occurred ma2 gradually, 1 hour(s) ago. Associated signs and symptoms: Pertinent negatives: anorexia, chest pain, diarrhea. Severity of pain: At its worst the pain was mild in the emergency department the pain is unchanged. The patient has not experienced similar symptoms in the past. Historical: - Allergies: 11/14 22:23 No Known Allergies; lp1 - Home Meds: 22:23 aspirin 325 mg Oral tab 1 tab once daily [Active]; bisoprolol fumarate 5 mg Oral tab 1 lp1 tab once daily [Active]; levothyroxine 150 mcg tab 1 tab once daily [Active]; simvastatin 80 mg Oral tab daily [Active]; - PMHx: 22:23 Angina; Hyperlipidemia; Hypertension; Hypothyroidism; lp1 - Immunization history:: Adult Immunizations up to date. - Social history:: Smoking status: Patient denies any tobacco usage or history of. - Family history:: not pertinent. ROS: 11/15 03:03 Constitutional: Negative for fever, chills, and weight loss. ma2 All other systems are negative. Exam: 03:03 Constitutional: This is a well developed, well nourished patient who is awake, alert, ma2 and in no acute distress. Head/Face: Normocephalic, atraumatic. Eyes: Pupils equal round and reactive to light, extra-ocular motions intact. Lids and lashes normal. Conjunctiva and sclera are non-icteric and not injected. Cornea within normal limits. Periorbital areas with no swelling, redness, or edema. ENT: Nares patent. No nasal discharge, no septal abnormalities noted. Tympanic membranes are normal and external auditory canals are clear. Oropharynx with no redness, swelling, or masses, exudates, or evidence of obstruction, uvula midline. Mucous membranes moist. Neck: Trachea midline, no thyromegaly or masses palpated, and no cervical lymphadenopathy. Supple, full range of motion without nuchal rigidity, or vertebral point tenderness. No Meningismus. Chest/axilla: Normal chest wall appearance and motion. Nontender with no deformity. No lesions are appreciated. Cardiovascular: Regular rate and rhythm with a normal S1 and S2. No gallops, murmurs, or rubs. Normal PMI, no JVD. No pulse deficits. Respiratory: Lungs have equal breath sounds bilaterally, clear to auscultation and percussion. No rales, rhonchi or wheezes noted. No increased work of breathing, no retractions or nasal flaring. Abdomen/GI: periumbilical hernia, non tender skin is unchanged, otherwise abdomin is Soft, non-tender, with normal bowel sounds. No distension or tympany. No guarding or rebound. No evidence of tenderness throughout. Vital Signs: 11/14 22:24 BP 136 / 92; Pulse 60; Resp 18; Temp 98.2(O); Pulse Ox 98% on R/A; Weight 102.06 kg lp1 (R); Height 5 ft. 11 in. (180.34 cm); Pain 7/10; 11/15 03:43 BP 121 / 62; Pulse 65; Resp 19; Pulse Ox 100% ; rr5 11/14 22:24 Body Mass Index 31.38 (102.06 kg, 180.34 cm) lp1 MDM: 11/14 23:40 Patient medically screened. ma2 11/15 03:03 Differential diagnosis: Irritable bowel syndrome, non-specific abd pain, Peritonitis, ma2 Prostatitis. Data reviewed: vital signs, nurses notes. Counseling: I had a detailed discussion with the patient and/or guardian regarding: the historical points, exam findings, and any diagnostic results supporting the discharge/admit diagnosis, the presence of at least one elevated blood pressure reading (>120/80) during this emergency department visit, the need for outpatient follow up. Response to treatment: the patient's symptoms have markedly improved after treatment. ED course: ct abd shows enteritis/colitis, wbc mildly elevated however he feels better and want to go home. hernia is reduced on exam. he has no diarrhea or vomiting. he will f/u with gi in the next few days . 11/14 23:40 Order name: Basic Metabolic Panel; Complete Time: 00:59 ea 11/14 23:40 Order name: CBC with Diff; Complete Time: 00:59 ea 11/14 23:40 Order name: Hepatic Function; Complete Time: 00:59 ea 11/14 23:40 Order name: Lipase; Complete Time: 00:59 ea 11/15 00:07 Order name: CT Abd/Pelvis - IV Contrast Only ma2 11/14 23:40 Order name: IV Saline Lock; Complete Time: 00:10 ea 11/14 23:40 Order name: Labs collected and sent; Complete Time: 00:10 ea Administered Medications: 00:15 Drug: Zofran (Ondansetron) 4 mg Route: IVP; Site: left antecubital; rr5 01:31 Follow up: Response: No adverse reaction ea 00:17 Drug: NS 0.9% 1000 ml Route: IV; Rate: 1 bolus; Site: left antecubital; rr5 01:20 Follow up: Response: No adverse reaction; IV Status: Completed infusion; IV Intake: rr5 1000ml 00:17 Drug: morphine 4 mg {Note: rass 0.} Route: IVP; Site: left antecubital; rr5 01:30 Follow up: Response: No adverse reaction ea 03:00 Drug: Rocephin (cefTRIAXone) 1 grams Route: IV; Rate: calculated rate; Site: left rr5 antecubital; 03:30 Follow up: Response: No adverse reaction; IV Status: Completed infusion; IV Intake: [id number] 03:08 Drug: Flagyl (metroNIDAZOLE) 500 mg Volume: 100 ml; Route: IVPB; Rate: 200 ml/hr; rr5 Infused Over: 30 mins; Site: left antecubital; 03:47 Follow up: Response: No adverse reaction; IV Status: Completed infusion; IV Intake: rr5 100ml 03:47 Drug: morphine 4 mg {Note: rass 0.} Route: IM; Site: left deltoid; rr5 03:47 Follow up: Response: Medication administered at discharge. rr5 Disposition: 11/15/20 03:06 Discharged to Home. Impression: Other specified noninfective gastroenteritis and colitis, Umbilical hernia without obstruction or gangrene. - Condition is Stable. - Discharge Instructions: Hernia, Adult, Colitis. - Prescriptions for Flagyl 500 mg Oral Tablet - take 1 tablet by ORAL route every 12 hours for 7 days; 14 tablet. Cipro 500 mg Oral Tablet - take 1 tablet by ORAL route every 12 hours for 7 days; 14 tablet. Diclofenac Sodium 75 mg Oral Tablet Sustained Release - take 1 tablet by ORAL route 2 times per day; 30 tablet. - Medication Reconciliation Form, Thank You Letter, Antibiotic Education, Prescription Opioid Use form. - Follow up: Private Physician; When: Tomorrow; Reason: Continuance of care. Follow up: Kanu Lynne MD; When: Tomorrow; Reason: Continuance of care. Follow up: Sabas Nixon MD; When: Tomorrow; Reason: If symptoms return, Continuance of care. Signatures: Dispatcher [employer] EDMS Ita Anderson RN RN lp1 Cherri Groves RN RN ea Alzahri, Mohammad, MD MD ma2 Mak Gomes RN RN rr5 Corrections: (The following items were deleted from the chart) 03:07 03:06 11/15/2020 03:06 Discharged to Home. Impression: Other specified noninfective ma2 gastroenteritis and colitis; Umbilical hernia without obstruction or gangrene. Condition is Stable. Prescriptions for Flagyl 500 mg Oral Tablet - take 1 tablet by ORAL route every 12 hours for 7 days; 14 tablet, Cipro 500 mg Oral Tablet - take 1 tablet by ORAL route every 12 hours for 7 days; 14 tablet, Diclofenac Sodium 75 mg Oral Tablet Sustained Release - take 1 tablet by ORAL route 2 times per day; 30 tablet. and Forms are Medication Reconciliation Form, Thank You Letter, Antibiotic Education, Prescription Opioid Use. Follow up: Private Physician; When: Tomorrow; Reason: Continuance of care. ma2 03:49 03:07 11/15/2020 03:06 Discharged to Home. Impression: Other specified noninfective rr5 gastroenteritis and colitis; Umbilical hernia without obstruction or gangrene. Condition is Stable. Prescriptions for Flagyl 500 mg Oral Tablet - take 1 tablet by ORAL route every 12 hours for 7 days; 14 tablet, Cipro 500 mg Oral Tablet - take 1 tablet by ORAL route every 12 hours for 7 days; 14 tablet, Diclofenac Sodium 75 mg Oral Tablet Sustained Release - take 1 tablet by ORAL route 2 times per day; 30 tablet. and Forms are Medication Reconciliation Form, Thank You Letter, Antibiotic Education, Prescription Opioid Use. Follow up: Private Physician; When: Tomorrow; Reason: Continuance of care. Follow up: Kanu Lynne; When: Tomorrow; Reason: Continuance of care. Follow up: Sabas Nixon; When: Tomorrow; Reason: If symptoms return, Continuance of care. ma2
--- NOTE | 2020-11-15 03:07 | ER ---
Nurse's Notes [facility] Name: Abrahan Jacobs Age: 55 yrs Sex: Male : 1965 Arrival Date: 11/14/2020 Time: 22:04 Bed 4 Private MD: Diagnosis: Other specified noninfective gastroenteritis and colitis;Umbilical hernia without obstruction or gangrene Presentation: 11/14 22:20 Chief complaint: Patient states: Began feeling abdominal distention about 1800 today; lp1 denies diarrhea, constipation, vomiting; reports has not been passing gas "for several days"; States began feeling distention after dinner tonight; had upper and lower GI procedure with Dr. Lynne on 10/04/20, found ulcer. Coronavirus screen: Client denies travel out of the [place] in the last 14 days. At this time, the client does not indicate any symptoms associated with coronavirus-19. Ebola Screen: No symptoms or risks identified at this time. Risk Assessment: Do you want to hurt yourself or someone else? Patient reports no desire to harm self or others. Onset of symptoms was November 14, 2020 at 18:00. 22:20 Method Of Arrival: Ambulatory lp1 22:20 Acuity: ZEB 3 lp1 22:24 Initial Sepsis Screen: Does the patient meet any 2 criteria? No. Patient's initial lp1 sepsis screen is negative. Does the patient have a suspected source of infection? No. Patient's initial sepsis screen is negative. Triage Assessment: 23:59 General: Appears uncomfortable, Behavior is appropriate for age. Pain: Complains of ea pain in right lower quadrant and left lower quadrant. Neuro: Level of Consciousness is awake, alert, obeys commands, Oriented to person, place, time. Cardiovascular: Patient's skin is warm and dry. Respiratory: Airway is patent Respiratory effort is even, unlabored, Respiratory pattern is regular, symmetrical. GI: Abdomen is round Reports lower abdominal pain. Derm: Skin is pink, warm \\T\\ dry. Historical: - Allergies: 22:23 No Known Allergies; lp1 - Home Meds: 22:23 aspirin 325 mg Oral tab 1 tab once daily [Active]; bisoprolol fumarate 5 mg Oral tab 1 lp1 tab once daily [Active]; levothyroxine 150 mcg tab 1 tab once daily [Active]; simvastatin 80 mg Oral tab daily [Active]; - PMHx: 22:23 Angina; Hyperlipidemia; Hypertension; Hypothyroidism; lp1 - Immunization history:: Adult Immunizations up to date. - Social history:: Smoking status: Patient denies any tobacco usage or history of. - Family history:: not pertinent. Screenin:23 Abuse screen: Denies threats or abuse. Denies injuries from another. Nutritional lp1 screening: No deficits noted. Tuberculosis screening: No symptoms or risk factors identified. Fall Risk None identified. Assessment: 11/15 00:10 Reassessment: Patient and/or family updated on plan of care and expected duration. Pain ea level reassessed. Patient is alert, oriented x 3, equal unlabored respirations, skin warm/dry/pink. 01:30 Reassessment: Patient and/or family updated on plan of care and expected duration. Pain ea level reassessed. Patient is alert, oriented x 3, equal unlabored respirations, skin warm/dry/pink. 03:43 Reassessment: Patient appears in no apparent distress at this time. Patient is alert, rr5 oriented x 3, equal unlabored respirations, skin warm/dry/pink. discharge instruction given and explained without complaints made Patient states feeling better. Patient states symptoms have improved. Vital Signs: 11/14 22:24 BP 136 / 92; Pulse 60; Resp 18; Temp 98.2(O); Pulse Ox 98% on R/A; Weight 102.06 kg lp1 (R); Height 5 ft. 11 in. (180.34 cm); Pain 7/10; 11/15 03:43 BP 121 / 62; Pulse 65; Resp 19; Pulse Ox 100% ; rr5 11/14 22:24 Body Mass Index 31.38 (102.06 kg, 180.34 cm) lp1 ED Course: 11/14 22:04 Patient arrived in ED. am2 22:22 Triage completed. lp1 22:23 Arm band placed on right wrist. lp1 23:40 Veto Ludwig MD is Attending Physician. ma2 23:51 Cherri Groves RN is Primary Nurse. ea 23:59 Patient has correct armband on for positive identification. Bed in low position. Call ea light in reach. Side rails up X2. 11/15 00:10 Inserted saline lock: 20 gauge in left antecubital area, using aseptic technique. Blood ea collected. 01:41 CT Abd/Pelvis - IV Contrast Only In Process Unspecified. EDMS 03:06 Kanu Lynne MD is Referral Physician. ma2 03:07 Sabas Nixon MD is Referral Physician. ma2 03:48 No provider procedures requiring assistance completed. IV discontinued, intact, rr5 bleeding controlled, No redness/swelling at site. Pressure dressing applied. Administered Medications: 00:15 Drug: Zofran (Ondansetron) 4 mg Route: IVP; Site: left antecubital; rr5 01:31 Follow up: Response: No adverse reaction ea 00:17 Drug: NS 0.9% 1000 ml Route: IV; Rate: 1 bolus; Site: left antecubital; rr5 01:20 Follow up: Response: No adverse reaction; IV Status: Completed infusion; IV Intake: rr5 1000ml 00:17 Drug: morphine 4 mg {Note: rass 0.} Route: IVP; Site: left antecubital; rr5 01:30 Follow up: Response: No adverse reaction ea 03:00 Drug: Rocephin (cefTRIAXone) 1 grams Route: IV; Rate: calculated rate; Site: left rr5 antecubital; 03:30 Follow up: Response: No adverse reaction; IV Status: Completed infusion; IV Intake: [id number] 03:08 Drug: Flagyl (metroNIDAZOLE) 500 mg Volume: 100 ml; Route: IVPB; Rate: 200 ml/hr; rr5 Infused Over: 30 mins; Site: left antecubital; 03:47 Follow up: Response: No adverse reaction; IV Status: Completed infusion; IV Intake: rr5 100ml 03:47 Drug: morphine 4 mg {Note: rass 0.} Route: IM; Site: left deltoid; rr5 03:47 Follow up: Response: Medication administered at discharge. rr5 Intake: 01:20 IV: 1000ml; Total: 1000ml. rr5 03:30 IV: 10ml; Total: 1010ml. rr5 03:47 IV: 100ml; Total: 1110ml. rr5 Outcome: 03:06 Discharge ordered by . ma2 03:48 Discharged to home ambulatory, with family. rr5 03:48 Condition: stable 03:48 Discharge instructions given to patient, Instructed on discharge instructions, follow up and referral plans. medication usage, Demonstrated understanding of instructions, follow-up care, medications, Prescriptions given X 3. 03:49 Patient left the ED. rr5 Signatures: Dispatcher [employer] EDMS Ita Anderson, RN RN lp1 Nely Solis Elena, RN RN ea Alzahri, Mohammad, MD MD ny2 Mak Gomes RN RN rr5
[2020-11-15] MEDS ORDERED: CEFTRIAXONE/SWI 1gm 1 GM/10 ML SYR ONE (03:20)
[2020-11-15] MEDS ORDERED: METRONIDAZOLE 500mg IVPB 500 MG/100 ML BAG IV ONE (03:20)
[2020-11-15 04:10] VITALS: TEMP 98.2
[2020-11-15 04:11] VITALS: BP 121/62; O2SAT 100
--- NOTE | 2020-11-15 19:32 | RAD REPORT ---
EXAM DESCRIPTION: CT Abdomen and Pelvis COMPARISON: None. CLINICAL HISTORY: [facility] MAIN ABD PAIN TECHNIQUE: CT of the abdomen and pelvis was acquired with IV contrast material. Coronal and sagitt al reconstructions were obtained. Automated exposure control was utilized on this examination as a dose lowering technique. FINDINGS: Lung bases: Clear. Liver: Normal. Gallbladder and biliary: Normal gallbladder. Unremarkable biliary tree. Pancreas: Normal. Spleen: Normal. Adrenal glands: Normal adrenal glands. Kidneys: Normal kidneys Stomach and Small Bowel: The stomach is normal. A few nonspecific air-fluid levels are noted in the s mall bowel. Urinary bladder: Normal. Prostate/Male Urogenital: Normal. Colon and Appendix: The colon is unremarkable. No evidence of appendicitis. Retroperitoneum and lymph nodes: Normal. Vascular: Mild atherosclerosis. Peritoneal cavity: No ascites or free air. Musculoskeletal and soft tissues: A small fat and fluid containing periumbilical hernia is noted. A f ew small mesenteric vessels are also contained in this hernia. Small fat-containing inguinal hernias. Lumbar spondylosis. No aggressive bone lesions. No compression fracture. IMPRESSION: 1. A few nonspecific air-fluid levels in the small bowel may represent mild enteritis. 2. Small periumbilical hernia containing fat, fluid, and small mesenteric vessels. Electronically signed by: Gregor Padilla MD 11/15/2020 2:16 AM CDT Due to temporary technical issues with the PACS/Fluency reporting system, reports are being signed by the in house radiologists without review as a courtesy to insure prompt reporting. The interpreting radiologist is fully responsible for the content of the report.
== END 2020-11-15 03:49 | disposition home or self-care (01) ==
LOC: ER 22:02
DX: K52.89 Other specified noninfective gastroenteritis and colitis (principal); K42.9 Umbilical hernia without obstruction or gangrene; I10 Essential (primary) hypertension; E03.9 Hypothyroidism, unspecified; Z79.82 Long term (current) use of aspirin
CPT/HCPCS: 85025; 80048; 36415; 80076; 83690; 74177; Q9967; J0696; J7030; J2405 ×2; 96361; 96365; 96372; 96375; 99284